=== PATIENT | male | born 1970 | race Caucasian/White ===

== ENCOUNTER 2024-04-14 07:39 | Emergency (ER) | payer OTHER, SELFPAY ==
[2024-04-14] VITALS (15 sets, daily range): BP systolic 136–176; BP diastolic 88–117; PULSE 62–71; RESP 13–23; TEMP 37.6; O2SAT 94–97; BMI 46.0
--- NOTE | 2024-04-14 07:43 | ECG_ITS ---
[facility] Test Date: 2024-04-14 Pat Name: Kirby Mackay Department: Room: Gender: Male [employer]: : 1970 Requested By: Trisha Cruz Order Number: [id number] Rosario MD: Pk Bates M.D. Measurements Intervals [place] Rate: 68 P: 21 AK: 157 QRS: -14 QRSD: 91 T: 1 QT: 373 QTc: 399 Interpretive Statements SINUS RHYTHM MODERATE VOLTAGE CRITERIA FOR LVH, CONSIDER NORMAL VARIANT [MEETS CRITERIA IN ONE OF: R(aVL), S(V1), R(V5), R(V5/V6)+S(V1)] Compared to ECG 06/11/2019 11:04:01 Sinus bradycardia no longer present Electronically Signed On 04-14-2024 8:27:08 CDT by Pk Bates M.D. [id number] f
--- NOTE | 2024-04-14 07:43 | XR_ITS ---
WS: [id number] Exam: XR chest 1V portable [id number] Date/Time of Exam: 04/14/2024 7:55 AM Reason For Exam: cough Comparison 06/11/2019. The lungs are fully expanded and clear. Normal cardiomediastinal silhouette and regional bony element s. No pleural effusions. XR/XR chest 1V portable [id number] IMPRESSION: 1. Negative chest.
--- NOTE | 2024-04-14 07:43 | CT_ITS ---
WS: [id number] CT HEAD TECHNIQUE: Noncontrast CT of the head obtained from the skullbase to the vertex. CLINICAL INFORMATION: weakness COMPARISON: 2019 DLP: 1104.[address] scans at [facility] use at least one of these dose optimization techniques: automated e xposure control; mA and/or kV adjustment per patient size (includes targeted exams where dose is matc hed to clinical indication); or iterative reconstruction. FINDINGS: No evidence of intracranial hemorrhage or mass effect. Ventricular system and basal cisterns are garcia nt. Minimal small vessel changes. No Extra-axial fluid collections. No evidence of mass or mass effe ct. Normal mello-white differentiation. LEFT maxillary sinusitis. Mastoid air cells are well aerated. CT/CT head wo con* [id number] IMPRESSION: 1. No evidence of intracranial hemorrhage or mass effect. 2. Slight LEFT maxillary sinusitis appears unchanged compared to previous 3. No acute intracranial findings.
--- NOTE | 2024-04-14 07:56 | ED_ITS ---
HPI - Neuro Symptoms/Deficit 2 General: Chief Complaint: Neuro Symptoms/Deficit Stated Complaint: Poss. TIA Time Seen by Provider: 04/14/24 07:40 Source: patient and EMS Mode of arrival: EMS Limitations: no limitations History of Present Illness: Patient states he woke up this morning he states feeling weird. He states he had some chills along with bodyaches states that he had generalized weakness as well he states to me he denies any focal weakness and some difficulty speaking he states he denies any slurring of his words states he feels much better currently has no symptoms currently he denies any headache denies any chest pain. Associated symptoms: Deny chest pain, headache(s), nausea or vomiting Related Data Allergies Allergy/AdvReac Type Severity Reaction Status Date / Time No Known Allergies Allergy Verified 04/14/24 07:45 Review of Systems 2 Const: Reports: chills and body aches; Denies: fever(s) or change in appetite Eyes: Denies: blurry vision or eye discomfort ENMT: Denies: throat pain or dental pain Card: Denies: chest pain Resp: Denies: dyspnea GI: Denies: abdominal pain, nausea, vomiting or diarrhea Musc: Denies: neck pain or back pain Skin/Breast: Denies: rash Neuro: Reports: weakness in extremities; Denies: headache(s) NIH stroke score 2 NIHSS: Level Of Consciousness - 1a: 0 Level Of Consciousness Questions - 1b: Both Correct Level Of Consciousness Commands - 1c: Both Correct Best Gaze - 2: Normal Visual Gomes - 3: No Visual Loss Facial Palsy - 4: N ormal Motor Arm Right - 5: No Drift Motor Arm Left - 5: No Drift Motor Leg Right - 6: No Drift Motor Leg Left - 6: No Drift Limb Ataxia - 7: A bsent Sensory - 8: Normal Best Language - 9: No Aphasia Dysarthia - 10: Normal Extinction And Inattention - 11: 0 Score: Total Score: 0 Physical Exam 2 Const: COMMON NORMALS: no acute distress, patient oriented x3 and healthy appearing HENMT: COMMON NORMALS: normocephalic and atraumatic HEAD & SCALP: n ormocephalic and atraumatic Eye: COMMON NORMALS: Equal, round and reactive pupils present and EOMs intact bilaterally PUPIL: Yes Equal, round and reactive pupils present Neck/C-Spine: COMMON NORMALS: full ROM and supple Chest: COMMONS NORMALS: normal inspection of the chest and normal palpation of entire chest wall Resp: COMMON NORMALS: normal respiratory effort, No retractions, No use of accessory muscles and clear to auscultation bilaterally AUSCULTATION: clear to auscultation bilaterally Cardio: COMMON NORMALS: regular rate, regular rhythm and No murmurs present (Cardio) RATE: regular rate RHYTHM: regular rhythm GI: COMMON NORMALS: Normal to inspection, nondistended, normoactive bowel sounds present, Soft to palpation, non-tender and no masses PALPATION: Yes Soft to palpation Extremity: COMMON NORMALS: normal to inspection and full ROM Neuro: COMMON NORMALS: patient oriented x3, moves all extremities and no focal motor deficits Psych: COMMON NORMALS: mental status grossly normal, Normal thought process present and cooperative THOUGHT PROCESS: Normal thought process present Skin: COMMON NORMALS: no rashes or lesions noted and no wounds GENERAL SKIN EXAM: no rashes or lesions noted Course 2 Vital Signs: Vital signs: Vital Signs Temperature 99.6 F 04/14/24 07:40 Pulse Rate 63 04/14/24 09:01 Respiratory Rate 23 H 04/14/24 08:10 Blood Pressure 136/88 04/14/24 09:01 Pulse Oximetry 95 04/14/24 09:01 Oxygen Delivery Me thod Room Air 04/14/24 08:55 MDM - Neuro Symptoms/Deficit Medical Decision Making Patient presents here with generalized weakness is since resolved. He had no focal deficits from my history head CT blood works normal he is wanting to go home he is on a baby aspirin and a statin he is follow-up with PCP's return if worsening he understands agrees to plan he has no signs of stroke here Medical Records I reviewed the patient's medical records. Lab Data I reviewed the patient's lab results. 04/14/24 07:30 04/14/24 07:30 Radiology Impressions Chest X-Ray 04/14/24 07:43 IMPRESSION: 1. Negative chest. Head CT 04/14/24 07:43 IMPRESSION: 1. No evidence of intracranial hemorrhage or mass effect. 2. Slight LEFT maxillary sinusitis appears unchanged compared to previous 3. No acute intracranial findings. Laboratory Results WBC 12.58 10^3/uL (3.29-11.43) H 04/14/24 07:30 RBC 5.37 10^6/uL (3.85-5.65) 04/14/24 07:30 Hgb 16.00 g/dL (11.27-16.99) 04/14/24 07:30 Hct 47.3 % (37-53) 04/14/24 07:30 MCV 88.1 fl (82-101) 04/14/24 07:30 MCH 29.8 pg (27-33) 04/14/24 07:30 MCHC 33.8 g/dL (30-55) 04/14/24 07:30 RDW 12.6 % (12.1-15.1) 04/14/24 07:30 Plt Count 235 10^3/cmm (157-399) 04/14/24 07:30 MPV 11.6 fL (7.4-10.4) H 04/14/24 07:30 Neut % (Auto) 82.2 % 04/14/24 07:30 Lymph % (Auto) 7.9 % 04/14/24 07:30 Canadian % (Auto) 7.7 % 04/14/24 07:30 Eos % (Auto) 1.4 % 04/14/24 07:30 Baso % (Auto) 0.5 % 04/14/24 07:30 Neut # (Auto) 10.34 10^3/uL (1.8-7.7) H 04/14/24 07:30 Lymph # (Auto) 1.0 10^3/uL (0.8-4.8) 04/14/24 07:30 Canadian # (Auto) 1.0 10^3/uL (0.2-0.9) H 04/14/24 07:30 Eos # (Auto) 0.2 10^3/uL (0.0-0.8) 04/14/24 07:30 Baso # (Auto) 0.1 10^3/uL (0.0-0.1) 04/14/24 07:30 Nucleated RBC % (auto) 0 % 04/14/24 07:30 Nucleated RBCs # 0.0 /100WBC 04/14/24 07:30 Sodium 139 mmol/L (136-145) 04/14/24 07:30 Potassium 4.0 mmol/L (3.5-5.1) 04/14/24 07:30 Chloride 104 mmol/L (98-107) 04/14/24 07:30 Carbon Dioxide 23 mmol/L (22-29) 04/14/24 07:30 Anion Gap 16.0 (5-19) 04/14/24 07:30 BUN 17 mg/dL (6-20) 04/14/24 07:30 Creatinine 0.8 mg/dL (0.7-1.2) 04/14/24 07:30 GFR Calculation 100.4 mL/min (90-130) 04/14/24 07:30 Glucose 113 mg/dL (65-115) 04/14/24 07:30 Calculated Osmolality 290 mOsm/kg (285-295) 04/14/24 07:30 Calcium 9.4 mg/dL (8.5-10.5) 04/14/24 07:30 Total Bilirubin 1.3 mg/dL (0.15-1.2) H 04/14/24 07:30 AST 21 U/L (0-40) 04/14/24 07:30 ALT 30 U/L (0-41) 04/14/24 07:30 Alkaline Phosphatase 90 U/L (40-130) 04/14/24 07:30 Total Protein 7.1 g/dL (6.6-8.7) 04/14/24 07:30 Albumin 4.3 g/dL (3.5-5.2) 04/14/24 07:30 Globulin 2.8 g/dL (1.3-4.6) 04/14/24 07:30 SARS-CoV-2 Ag (Rapid) Negative (Negative) 04/14/24 08:15 All radiology interpretation(s) finalized by discharge EKG Data EKG 1: I personally reviewed and interpreted this EKG as follows: EKG interpretation date: 04/14/24 EKG interpretation time: 07:45 Interpretation: nsr hr [address] elevation qrs 91 qtc 391 Discharge Plan Discharge Patient Disposition: Home Clinical Impression: Weakness Condition: Stable Discharge Orders: Discharge ED (Routine); Ordered 04/14/24 Ordered By: Trisha Cruz Referrals: Carlos Alberto Garza MD [Primary Care Provider] - 4-7 days Discharge Diet: Advance as tolerated Discharge Activity: Resume usual activity Patient Instructions: Weakness (ED) Coding Level of Care Code ED Teller Manager for Chg Fwd
[2024-04-14 07:57] LABS: Basophils # 0.1 10^3/uL (0.0-0.1); Basophils % 0.5 %; Eosinophils # 0.2 10^3/uL (0.0-0.8); Eosinophils % 1.4 %; Hematocrit 47.3 % (37-53); Lymphocytes % 7.9 %; Mean Corpuscular HGB Conc 33.8 g/dL (30-55); Mean Corpuscular Hemoglobin 29.8 pg (27-33); Mean Corpuscular Volume 88.1 fl (82-101); Mean Platelet Volume 11.6 fL (7.4-10.4); Monocytes % 7.7 %; Neutrophils # 10.34 10^3/uL (1.8-7.7); Neutrophils % 82.2 %; Nucleated Red Blood Cells % 0 %; Platelet Count 235 10^3/cmm (157-399); Red Blood Count 5.37 10^6/uL (3.85-5.65); Red Cell Distribution Width 12.6 % (12.1-15.1); White Blood Count 12.58 10^3/uL (3.29-11.43)
[2024-04-14] MEDS: acetaminophen 325 mg Tablet 650 MG PO (08:12)
[2024-04-14 08:15] LABS: Alanine Aminotransferase 30 U/L (0-41); Albumin Level 4.3 g/dL (3.5-5.2); Alkaline Phosphatase 90 U/L (40-130); Aspartate Amino Transferase 21 U/L (0-40); Blood Urea Nitrogen 17 mg/dL (6-20); Calcium 9.4 mg/dL (8.5-10.5); Carbon Dioxide 23 mmol/L (22-29); Chloride 104 mmol/L (98-107); Creatinine Clr Calc Pharmacy 155.0276; Globulin 2.8 g/dL (1.3-4.6); Glomerular Filtration Rate 100.4 mL/min (90-130); Glucose 113 mg/dL (65-115); Osmolality Calculated 290 mOsm/kg (285-295); Sodium 139 mmol/L (136-145); Total Bilirubin 1.3 mg/dL (0.15-1.2); Total Protein 7.1 g/dL (6.6-8.7)
[2024-04-14 08:49] LABS: SARS Covid-2 Antigen Negative (Negative)
== END 2024-04-14 09:00 | disposition home or self-care (01) ==
PROVIDERS: Emergency Provider Emergency Medicine; Family Provider Family Medicine; PCP Family Medicine
DX: R53.1 Weakness (principal); Z11.52 Encounter for screening for COVID-19
CPT/HCPCS: 70450; 71045; 80053; 85025; 87426; 93005; 99285